=== PATIENT | male | born 1955 | race Caucasian/White ===

== ENCOUNTER 2021-11-17 09:10 | Day surgery (SDC) | payer MEDICARE, MEDICAID ==
[~2021-11-17] VITALS: Ht 172.7 cm; Wt 130.9 kg
[~2021-11-17 09:10] MED LIST: ALLO-45 PO; AMLO-258 PO; ANUSHCS PR; ASPIRIN 81 MG CHEWABLE TABLET PO ONE; CARV12 PO; CHL25 PO; DIAZEPAM 5 MG TABLET PO ONE; DiphenhydrAMINE HCL 50 MG CAPSULE PO ONE; FENO43CA8 PO; FURO40 PO; ICOS1CAP PO; INSU100C6 SQ; INSU200I4 SQ; LEVO100 PO; LISI-894 PO; NIFE-39 PO; PANT-31 PO; SEVE800T17 PO; SIMV-261 PO; SODIUM CHLORIDE 0.9% 0 ML ONE; SODIUM CHLORIDE 0.9% 1,000 ML IV SCH; SODIUM CHLORIDE 0.9% 1,000 ML ONE; TAMS-13 PO; TORS20TA5 PO
[2021-11-17] MEDS ORDERED: SODIUM CHLORIDE 0.9% 1,000 ML IV ONE (10:00)
[2021-11-17 10:16] LABS: GLUCOMETER DEV NAME(LOC) SDS.; GLUCOSE,POINT OF CARE 187 MG/DL (70-110)
[2021-11-17] MEDS ORDERED: DIAZEPAM 5 MG TABLET ONE (10:23)
[2021-11-17] MEDS ORDERED: DiphenhydrAMINE HCL 50 MG CAPSULE ONE ×2 (10:24→10:45)
[2021-11-17] MEDS ORDERED: ASPIRIN 81 MG CHEWABLE TABLET ONE (10:24)
[2021-11-17] MEDS ORDERED: PATI8.4P PO (11:13)
[2021-11-17] MEDS ORDERED: CARV6.2534 PO (11:13)
[2021-11-17] MEDS ORDERED: SEVE800T7 PO (11:13)
[2021-11-17] MEDS ORDERED: SODIUM BICARBONATE 50 MEQ/50 ML VIAL ONE (11:42)
[2021-11-17] MEDS ORDERED: LIDOCAINE/PF 1% 30 ML VIAL ONE (11:42)
[2021-11-17] MEDS ORDERED: IOHEXOL 300 MG/ML 50 ML VIAL ONE (11:42)
[2021-11-17] MEDS ORDERED: IOHEXOL 300 MG/ML 100 ML VIAL ONE (11:42)
[2021-11-17] MEDS ORDERED: IOHEXOL 300 MG/ML 150 ML VIAL ONE (11:42)
[2021-11-17 11:57] VITALS: BP 111/38
[2021-11-17] MEDS ORDERED: MIDAZOLAM HCL 2 MG/2 ML VIAL ONE (12:02)
[2021-11-17] MEDS ORDERED: FentaNYL CITRATE PF 100 MCG/2 ML VIAL ONE (12:02)
[2021-11-17] MEDS ORDERED: HEPARIN SODIUM 1000 UNITS/NS 1,000 ML IARTER ONE (12:15)
[2021-11-17] MEDS ORDERED: LIDOCAINE 1% 30 ML/SOD BICARB 8.4% 4 ML SQ ONE (12:15)
[2021-11-17] MEDS ORDERED: IOHEXOL 300 MG/ML 150 ML VIAL ICOR ONE (12:15)
[2021-11-17] MEDS ORDERED: FentaNYL CITRATE PF 100 MCG/2 ML VIAL IVP ONE (12:30)
[2021-11-17] MEDS ORDERED: MIDAZOLAM HCL 2 MG/2 ML VIAL IVP ONE (12:30)
== END 2021-11-17 16:50 | disposition home or self-care (01) ==
LOC: CATHLAB 09:10
PROVIDERS: ATTEND Internal Medicine Interventional Cardiology
DX: R94.39 Abnormal result of other cardiovascular function study (principal); E11.22 Type 2 diabetes mellitus with diabetic chronic kidney disease; I12.9 Hypertensive chronic kidney disease with stage 1 through stage 4 chronic kidney disease, or unspecified chronic kidney disease; N18.9 Chronic kidney disease, unspecified; E78.5 Hyperlipidemia, unspecified; G47.30 Sleep apnea, unspecified; Z83.3 Family history of diabetes mellitus; Z98.890 Other specified postprocedural states; Z98.49 Cataract extraction status, unspecified eye; Z79.4 Long term (current) use of insulin; Z79.899 Other long term (current) drug therapy; Z89.021 Acquired absence of right finger(s)
CPT/HCPCS: 82962; 93454; C1760; J2250; J3010; J3490 ×2; J7030; Q9967 ×3; 93460